=== PATIENT | male | born 1965 | race Two or more races ===

== ENCOUNTER 2023-01-30 05:14 | Day surgery (SDC) | payer OTHER ==
[~2023-01-30] VITALS: Ht 160 cm; Wt 65.8 kg
[~2023-01-30 05:14] MED LIST: COZAAR100 MG PO; FENOFIBRATE134 MG PO; GLIMEPIRIDE2 MG; JARDIANCE10 MG PO; METFORMIN HCL500 M3 PO; OMEGA-31000 MG PO
== END 2023-01-30 12:00 | disposition home or self-care (01) ==
LOC: CIR.AMB 05:14
PROVIDERS: ATTEND Urology
DX: N47.1 Phimosis (principal); N47.7 Other inflammatory diseases of prepuce; Z20.822 Contact with and (suspected) exposure to COVID-19